=== PATIENT | male | born 1990 | race Caucasian/White ===

== ENCOUNTER → 2022-01-02 15:29 | Outpatient (BNVA) | payer MEDICARE, SELFPAY | PROVIDERS: PCP Physician Assistant; Visit Provider Internal Medicine | DX: K52.9 Noninfective gastroenteritis and colitis, unspecified (principal); K92.1 Melena | CPT/HCPCS: 80053; 82784; 83516; 83550; 84443; 85025; 85651 ==

== ENCOUNTER 2022-01-15 07:00 | Day surgery (SDC) | payer MEDICARE, MEDICAID, SELFPAY ==
[2022-01-11 14:50] VITALS: BMI 33.8
--- NOTE | 2022-01-15 07:16 | P.HP_ITS ---
Same Day Surgery H&P Indication for Procedure/HPI DATE OF PROCEDURE: January 15, 2022 CHIEF COMPLAINT/INDICATIONFOR SURGICAL PROCEDURE: Chronic diarrhea PREOP DIAGNOSIS: N/V/Chronic diarrhea PLANNED PROCEDURE: Operation Date: 01/15/22 08:30 Proposed Procedures p EGD and colonoscopy [id number],K52.9(Not Applicable) - Madi Jones MD s Colonoscopy(Not Applicable) - Madi Jones MD Medications/Allergies* Home Medications Medication Instructions Recorded Confirmed Type atorvastatin 40 mg tablet (Lipitor) 40 mg PO DAILY 12/27/21 01/11/22 History bupropion HCl 150 mg 24 hr tablet, 150 mg PO QAM 12/27/21 01/11/22 History extended release (Wellbutrin XL) ergocalciferol (vitamin D2) 1,250 1,250 mcg PO .Weekly cap 12/27/21 01/11/22 History mcg (50,000 unit) capsule fluticasone propionate 50 1 spray INTRANASAL DAILY 12/27/21 01/11/22 History mcg/actuation nasal spray,suspension (Flonase Allergy Relief) levothyroxine 50 mcg capsule 50 mcg PO DAILY 12/27/21 01/11/22 History loratadine 10 mg tablet 10 mg PO DAILY 12/27/21 01/11/22 History ondansetron 4 mg disintegrating 4 mg PO Q8H PRN 12/27/21 01/11/22 History tablet vitamin B complex-folic acid 1 2 tab PO DAILY 01/11/22 01/11/22 History mg-vit C 100 mg-biotin 300 mcg tablet Allergies/Adverse Reactions Allergy/AdvReac Type Severity Reaction Status Date / Time codeine Allergy Unknown Verified 01/02/22 14:52 morphine Allergy ADR-Anxiety Verified 01/11/22 14:43 Pertinent History/Comorbid Conditions* Family History (Updated 12/27/21 @ 15:24 by Arben Miller) Psychiatric illness Mother Social History Smoking and tobacco status: never smoked Alcohol intake: current Alcohol intake frequency: other Pertinent Exam Findings alert, oriented x 3, clear to auscultation bilaterally, regular rate & rhythm, operative site marked and procedure specific exam findings Recommendations Surgery/Procedure today Coding Level of Care Code Acute Contact Lens Blocker for Jingg Reji
[2022-01-15 07:23] VITALS: BP 156/97; PULSE 87; RESP 20; TEMP 37; O2SAT 96
[2022-01-15] MEDS: sodium chloride 0.9% 1,000 ML 30 ML IV (07:33)
--- NOTE | 2022-01-15 08:13 | ANES.PREANE2 ---
Pre-Anesthetic Assessment Height/Weight: Height 1.93 m Weight 126.099 kg Temp Pulse Resp BP Pulse Ox 98.6 F 87 20 H 156/97 96 01/15/22 07:23 01/15/22 07:23 01/15/22 07:23 01/15/22 07:23 01/15/22 07:23 Preop Diagnosis: N/V/Chronic diarrhea Operation Date: 01/15/22 08:30 Proposed Procedures p EGD and colonoscopy [id number],K52.9(Not Applicable) - Madi Jones MD s Colonoscopy(Not Applicable) - Madi Jones MD Familial anesthetic complications: none Was Beta Viri taken within 24 hours: N/A Was Clonidine taken within 24 hours: N/A Last intake: Intake Last Liquid Date 01/14/22 Last Liquid Time 20:00 Last Solid Date 01/13/22 Last Solid Time 23:00 Social No alcohol and No tobacco Exam alert, oriented x 3, clear to auscultation bilaterally and regular rate & rhythm Airway Submandibular: within normal limits Cervical ROM: within normal limits Mallampati: Class II Dentition: full Pulmonary None reported CV/HEM None reported METS > 4 None reported Hepatic None reported GI Gastroesophageal Reflux Disease (Poorly controlled GERD with reflux) Chronic diarrhea Metabolic None reported Musc/skel None reported Neuropsych None reported Anesthetic Plan ASA status: 2 Anesthesia: General and MAC Other: I discussed with the patient risks, goals, and benefits of MAC and general anesthesia. We discussed spectrum of MAC anesthesia including conversion to general as well as possibility of recall of intraoperative stimuli including discomfort/pain. Patient agrees to proceed with MAC. Risk of > 500 ml blood loss (7ml/kg in children): No Medications/Allergies Home Medications Medication Instructions Recorded Confirmed Last Taken Type atorvastatin 40 mg tablet (Lipitor) 40 mg PO DAILY 12/27/21 01/11/22 01/13/22 History bupropion HCl 150 mg 24 hr tablet, 150 mg PO QAM 12/27/21 01/11/22 01/13/22 History extended release (Wellbutrin XL) ergocalciferol (vitamin D2) 1,250 1,250 mcg PO .Weekly cap 12/27/21 01/11/22 01/13/22 History mcg (50,000 unit) capsule fluticasone propionate 50 1 spray INTRANASAL DAILY 12/27/21 01/11/2222 History mcg/actuation nasal spray,suspension (Flonase Allergy Relief) levothyroxine 50 mcg capsule 50 mcg PO DAILY 12/27/21 01/11/22 01/13/22 History loratadine 10 mg tablet 10 mg PO DAILY 12/27/21 01/11/22 01/13/22 History ondansetron 4 mg disintegrating 4 mg PO Q8H PRN 12/27/21 01/11/22 01/13/22 History tablet vitamin B complex-folic acid 1 2 tab PO DAILY 01/11/22 01/11/22 01/13/22 History mg-vit C 100 mg-biotin 300 mcg tablet Allergies Allergy/AdvReac Type Severity Reaction Status Date / Time codeine Allergy Unknown Verified 01/02/22 14:52 morphine Allergy ADR-Anxiety Verified 01/11/22 14:43 Current Medications Generic Name Dose Route Start Last Admin Trade Name Freq PRN Reason Stop Dose Admin Sodium Chloride 1,000 mls @ 30 mls/hr 01/15/22 07:30 01/15/22 07:33 Sodium Chloride 0.9% IV 01/16/22 07:29 30 mls/hr .Q24H ANN MARIE Administration PFSH Anesthesia Family History Mother Psychiatric illness Social History Smoking and tobacco status: never smoked Alcohol intake: current Alcohol intake frequency: other Data Anesthesia Cardiac Studies: No Data to Display
[2022-01-15 09:12] VITALS: BP 108/63; PULSE 80; RESP 18; TEMP 36.1; O2SAT 96
[2022-01-15 09:20] VITALS: BP 113/80; PULSE 72; RESP 18; O2SAT 97
--- NOTE | 2022-01-15 13:40 | ANE.PACU2 ---
Inpatient post-anesthesia follow up: Airway intact: Yes Vital signs: Temperature 97.0 F Pulse Rate 72 Respiratory Rate 18 Blood Pressure 113/80 Pulse Oximetry 97 Oxygen Delivery Me thod Room Air Oxygen Flow Rate 3 Fraction of Inspir ed Oxygen Hydration adequate: Yes Nausea and vomiting: No Pain level: 1 Mental status: Baseline
[2022-01-16 10:41] LABS: H. Pylori / CLO Test Negative
== END 2022-01-15 09:50 | disposition home or self-care (01) ==
PROVIDERS: PCP Physician Assistant; Visit Provider Internal Medicine
PROC: 0DJ08ZZ Inspection of Upper Intestinal Tract, Via Natural or Artificial Opening Endoscopic (ICD-10-PCS; CPT 43235; principal; 2022-01-15 08:30)
PROC: 0DJD8ZZ Inspection of Lower Intestinal Tract, Via Natural or Artificial Opening Endoscopic (ICD-10-PCS; CPT 45378; 2022-01-15 08:30)
DX: K52.9 Noninfective gastroenteritis and colitis, unspecified (principal); K29.70 Gastritis, unspecified, without bleeding; K21.9 Gastro-esophageal reflux disease without esophagitis
CPT/HCPCS: 43239; 45378; 82274; 83630; 87077; 87493; 87506; 88305; J2704; J7030